=== PATIENT | male | born 2000 | race Two or more races ===

== ENCOUNTER 2018-05-25 07:56 | Emergency (ER) | payer OTHER ==
[~2018-05-25] VITALS: Ht 182.9 cm; Wt 68.1 kg
[2018-05-25 07:57] VITALS: BP 121/73
[2018-05-25] MEDS ORDERED: LIDOCAINE-MPF 1%, 5ML INFIL ONE (09:00)
[2018-05-25] MEDS ORDERED: LIDOCAINE-MPF 1%, 2ML ONE (09:20)
[2018-05-25] MEDS ORDERED: BACITRACIN ZINC OINT 500U/GM, 0.9 GM ONE (09:21)
[2018-05-25] MEDS ORDERED: LIDOCAINE 2%, 20ML SQ ONE (09:30)
== END 2018-05-25 10:20 | disposition home or self-care (01) ==
LOC: ED 10:10
DX: S91.312A Laceration without foreign body, left foot, initial encounter (principal); X58.XXXA Exposure to other specified factors, initial encounter; Y93.89 Activity, other specified; Y99.8 Other external cause status; Y92.828 Other wilderness area as the place of occurrence of the external cause
CPT/HCPCS: 12032; 12042; 99284